=== PATIENT | female | born 1935 | race Caucasian/White ===

== ENCOUNTER 2019-04-06 07:11 | Emergency (ER) | payer OTHER, MEDICAID ==
[~2019-04-06] VITALS: Ht 165.1 cm; Wt 72.6 kg
[~2019-04-06 07:11] MED LIST: ASA81 PO; CARB1TAB10 PO; DICY10CA13 PO; GABA-531 PO; MEMA5TAB PO; MOM PO; MORP30TA59 PO; MULT-1117 PO; ONDA4TAB5 PO
[2019-04-06 07:18] VITALS: BP_SYST 148
[2019-04-06] MEDS ORDERED: LIDOCAINE 1% 10 MG/ML, 20 ML MDV INJ ONE (08:00)
[2019-04-06] MEDS ORDERED: LIDOCAINE 1%, 20 ML MDV 20 ML ONE (08:07)
[2019-04-06 11:10] VITALS: BP_SYST 148
== END 2019-04-06 11:10 | disposition home or self-care (01) ==
LOC: SED 07:11
DX: S51.812A Laceration without foreign body of left forearm, initial encounter (principal); S01.81XA Laceration without foreign body of other part of head, initial encounter; G20 Parkinson's disease; Z86.79 Personal history of other diseases of the circulatory system; Z79.82 Long term (current) use of aspirin; Z79.899 Other long term (current) drug therapy; W01.0XXA Fall on same level from slipping, tripping and stumbling without subsequent striking against object, initial encounter; Y93.89 Activity, other specified; Y92.89 Other specified places as the place of occurrence of the external cause; Y99.8 Other external cause status
CPT/HCPCS: 12004; 70450; 99284; J2001

== ENCOUNTER 2020-05-12 20:56 | Emergency (ER) | payer OTHER, MEDICAID ==
[~2020-05-12] VITALS: Ht 165.1 cm; Wt 72.6 kg
[2020-05-12 20:56] VITALS: BP_SYST 120
[2020-05-12] MEDS ORDERED: DOCU-144 PO (21:28)
[2020-05-12] MEDS ORDERED: LACT10SO6 PO (21:29)
[2020-05-12] MEDS ORDERED: ACET325T PO (21:31)
[2020-05-12] MEDS ORDERED: MEMA10TA PO ×2 (21:32→21:39)
[2020-05-12] MEDS ORDERED: CARB-61 PO (21:33)
[2020-05-12] MEDS ORDERED: ASCO500T20 PO (21:35)
[2020-05-12] MEDS ORDERED: CHOL100034 PO (21:38)
[2020-05-12] MEDS ORDERED: MULT-1100 PO (21:42)
[2020-05-12 21:48] LABS: BASOPHILS # (AUTO) 0.1 K/uL (0.0-0.2); BASOPHILS % (AUTO) 0.8 % (0.0-2.0); EOSINOPHILS # (AUTO) 0.1 K/uL (0.0-0.4); EOSINOPHILS % (AUTO) 1.1 % (0.0-4.0); HEMATOCRIT 39.3 % (36-48); HEMOGLOBIN 12.9 g/dL (12.0-16.0); LYMPHOCYTES # (AUTO) 3.1 K/uL (1.0-5.5); LYMPHOCYTES % (AUTO) 23.4 % (20.5-51.5); MEAN CORPUSCULAR HEMOGLOBIN 31 pg (27-31); MEAN CORPUSCULAR HGB CONC 33 % (32-36); MEAN CORPUSCULAR VOLUME 95 fL (79.0-98.0); MONOCYTES # (AUTO) 1.4 K/uL (0.0-1.0); MONOCYTES % (AUTO) 10.3 % (1.7-9.3); NEUTROPHILS # (AUTO) 8.5 K/uL (1.8-7.7); NEUTROPHILS % (AUTO) 64.4 % (40.0-70.0); PLATELET COUNT (AUTO) 433 K/uL (130-430); RED BLOOD CELL COUNT(AUTO) 4.13 MIL/uL (4.2-6.2); RED CELL DISTRIBUTION WIDTH 14.2 % (9.0-15.0); WHITE BLOOD COUNT (AUTO) 13.3 K/uL (4.8-10.8)
[2020-05-12 21:49] LABS: BILIRUBIN,URINE 1+ (NEGATIVE); COLOR,URINE YELLOW (YELLOW); GLUCOSE,URINE NEGATIVE (NEGATIVE); KETONES,URINE 1+ (NEGATIVE); LEUKOCYTE ESTERASE ,URINE NEGATIVE (NEGATIVE); NITRITE, URINE NEGATIVE (NEGATIVE); PH,URINE 5.5 (5.0-8.0); PROTEIN URINE NEGATIVE (NEGATIVE); UROBILINOGEN,URINE 0.2 (0.2-1.0)
[2020-05-12 22:05] LABS: ANION GAP 7 (5-15); CALCIUM 9.1 mg/dL (8.4-11.0); CHLORIDE 104 mmol/L (98-107); CREATININE 0.65 mg/dL (0.55-1.30); GLUCOSE 100 mg/dL (70-99); POTASSIUM 3.8 mmol/L (3.5-5.1); SODIUM SERUM 140 mmol/L (136-145); UREA NITROGEN, BLOOD 26 mg/dL (8-21)
[2020-05-12 22:14] LABS: ALANINE AMINOTRANSFERASE 25 U/L (12-78); ALBUMIN 3.7 g/dL (3.4-4.8); ASPARTATE AMINOTRANSFERASE 28 U/L (10-37); TOTAL BILIRUBIN 0.6 mg/dL (0.0-1.0)
[2020-05-12 22:23] LABS: ALCOHOL, BLOOD < 3 mg/dL (<10)
[2020-05-12 22:31] LABS: BARBITURATE, URINE NEGATIVE (NEG <=200); BENZODIAZEPINE, URINE NEGATIVE (NEG <=150); CANNABINOID, URINE NEGATIVE (NEG <=50); COCAINE, URINE NEGATIVE (NEG <=150); METHAMPHETAMINES SCREEN,URINE NEGATIVE (NEG <=500); OPIATE, URINE NEGATIVE (NEG <=100); PHENCYCLIDINE SCREEN,URINE NEGATIVE (NEG <=25); UR TRICYCLIC ANTIDEPRESSANTS NEGATIVE (NEG <=300); URINE AMPHETAMINE NEGATIVE (NEG <=500); URINE METHADONE NEGATIVE (NEG <=200); URINE OXYCODONE SCREEN NEGATIVE (NEG <=100); URINE PROPOXYPHENE SCREEN NEGATIVE (NEG <=300)
[2020-05-12] MEDS: NACL 0.9% 1,000 ML IV ONE (22:32)
[2020-05-12 22:36] LABS: BLOOD, URINE TRACE (NEGATIVE); CLARITY/URINE HAZY (CLEAR)
[2020-05-12 22:43] LABS: BACTERIA,URINE FEW /HPF (None Seen); MUCUS,URINE 2+ /LPF (None Seen); RBC,URINE 0-3 /HPF (0-3)
[2020-05-12] MEDS: cefTRIAXone 1 GM in D5W 50 ML IV ONE (22:59)
[2020-05-12] MEDS ORDERED: cefTRIAXone 1 GM VIAL ONE (23:13)
[2020-05-13 00:40] VITALS: BP_SYST 120
== END 2020-05-13 00:40 | disposition home or self-care (01) ==
LOC: SED 20:56
DX: R41.82 Altered mental status, unspecified (principal); N39.0 Urinary tract infection, site not specified; G20 Parkinson's disease; Z86.73 Personal history of transient ischemic attack (TIA), and cerebral infarction without residual deficits; Z79.899 Other long term (current) drug therapy; Z79.82 Long term (current) use of aspirin
CPT/HCPCS: 36415; 70450; 71045; 80053; 80307; 81000; 84484; 85025; 93005; 96365; 99285; G0482; J0696; J7030

== ENCOUNTER 2020-05-13 14:43 | Emergency (ER) | payer OTHER, MEDICAID ==
[~2020-05-13] VITALS: Ht 165.1 cm; Wt 68.0 kg
[~2020-05-13 14:43] MED LIST changes: +ACET325T PO; +ASCO500T20 PO; +CARB-61 PO; +CHOL100034 PO; +DOCU-144 PO; +LACT10SO6 PO; +MEMA10TA PO; +MULT-1100 PO
[2020-05-13 15:00] VITALS: BP_SYST 150
[2020-05-13 16:05] VITALS: BP_SYST 148
== END 2020-05-13 16:06 ==
LOC: SED 14:43
DX: R41.0 Disorientation, unspecified (principal); R45.1 Restlessness and agitation; G20 Parkinson's disease; G30.9 Alzheimer's disease, unspecified; F02.80 Dementia in other diseases classified elsewhere, unspecified severity, without behavioral disturbance, psychotic disturbance, mood disturbance, and anxiety; Z86.73 Personal history of transient ischemic attack (TIA), and cerebral infarction without residual deficits; Z79.899 Other long term (current) drug therapy; Z79.82 Long term (current) use of aspirin; Z20.828 Contact with and (suspected) exposure to other viral communicable diseases
CPT/HCPCS: 36415; 87081; 99285

== ENCOUNTER 2022-09-26 20:35 | Inpatient (IN) | payer OTHER, MEDICAID ==
[~2022-09-26] VITALS: Ht 167.6 cm; Wt 80.3 kg
[~2022-09-26 20:35] MED LIST changes: +CARB-317 PO; -CARB-61 PO; -CARB1TAB10 PO; -DICY10CA13 PO; -GABA-531 PO; -MEMA5TAB PO; -MOM PO; -MORP30TA59 PO; -MULT-1100 PO; -MULT-1117 PO; +MULT-1193 PO; -ONDA4TAB5 PO
[2022-09-26 20:38] VITALS: BP_SYST 120
[2022-09-26] MEDS ORDERED: DIPHENHYDRAMINE INJ 50 MG/ML VIAL IM ONE (20:45)
[2022-09-26] MEDS ORDERED: LORazepam 2 MG/ML VIAL IM ONE (20:45)
[2022-09-26] MEDS ORDERED: LORA-258 PO (21:04)
[2022-09-26] MEDS ORDERED: ASPI-524 PO (21:04)
[2022-09-26] MEDS ORDERED: DOCU100T10 PO (21:04)
[2022-09-26] MEDS ORDERED: CRAN450T9 PO (21:04)
[2022-09-26 21:05] LABS: BASOPHILS # (AUTO) 0.1 K/uL (0.0-0.2); BASOPHILS % (AUTO) 0.6 % (0.0-2.0); EOSINOPHILS # (AUTO) 0.1 K/uL (0.0-0.4); EOSINOPHILS % (AUTO) 0.4 % (0.0-4.0); HEMATOCRIT 37.2 % (36-48); HEMOGLOBIN 12.5 g/dL (12.0-16.0); LYMPHOCYTES # (AUTO) 1.6 K/uL (1.0-5.5); LYMPHOCYTES % (AUTO) 13.6 % (20.5-51.5); MEAN CORPUSCULAR HEMOGLOBIN 31 pg (27-31); MEAN CORPUSCULAR HGB CONC 34 % (32-36); MEAN CORPUSCULAR VOLUME 93 fL (79.0-98.0); MONOCYTES # (AUTO) 1.2 K/uL (0.0-1.0); MONOCYTES % (AUTO) 10.6 % (1.7-9.3); NEUTROPHILS # (AUTO) 8.6 K/uL (1.8-7.7); NEUTROPHILS % (AUTO) 74.8 % (40.0-70.0); PLATELET COUNT (AUTO) 313 K/uL (130-430); RED BLOOD CELL COUNT(AUTO) 4.01 MIL/uL (4.2-6.2); RED CELL DISTRIBUTION WIDTH 14.5 % (9.0-15.0); WHITE BLOOD COUNT (AUTO) 11.5 K/uL (4.8-10.8)
[2022-09-26] MEDS ORDERED: MEMA10TA PO (21:07)
[2022-09-26] MEDS ORDERED: ACET325C6 PO (21:07)
[2022-09-26] MEDS ORDERED: CARB-61 PO (21:07)
[2022-09-26] MEDS ORDERED: MELA3TAB55 PO (21:07)
[2022-09-26] MEDS ORDERED: CHOL500013 PO (21:07)
[2022-09-26] MEDS ORDERED: MULT-598 PO (21:07)
[2022-09-26] MEDS ORDERED: DONE5TAB3 PO (21:07)
[2022-09-26 21:15] LABS: ANION GAP 7 (5-15); CALCIUM 8.9 mg/dL (8.4-11.0); CHLORIDE 101 mmol/L (98-107); CREATININE 0.81 mg/dL (0.55-1.30); GLUCOSE 103 mg/dL (70-99); UREA NITROGEN, BLOOD 24 mg/dL (8-21)
[2022-09-26 21:22] LABS: ALANINE AMINOTRANSFERASE 11 U/L (12-78); ALBUMIN 3.5 g/dL (3.4-4.8); ASPARTATE AMINOTRANSFERASE 24 U/L (10-37); TOTAL BILIRUBIN 0.7 mg/dL (0.0-1.0)
[2022-09-26 21:41] LABS: BILIRUBIN,URINE NEGATIVE (NEGATIVE); BLOOD, URINE NEGATIVE (NEGATIVE); CLARITY/URINE SL CLOUDY (CLEAR); COLOR,URINE YELLOW (YELLOW); GLUCOSE,URINE NEGATIVE (NEGATIVE); KETONES,URINE 1+ (NEGATIVE); LEUKOCYTE ESTERASE ,URINE TRACE (NEGATIVE); NITRITE, URINE NEGATIVE (NEGATIVE); PROTEIN URINE NEGATIVE (NEGATIVE); UROBILINOGEN,URINE 0.2 (0.2-1.0)
[2022-09-26 21:58] LABS: BACTERIA,URINE FEW /HPF (None Seen); RBC,URINE 0-3 /HPF (0-3); WBC,URINE 50-80 /HPF (0-3); YEAST,URINE Rare /HPF (None Seen)
[2022-09-26 21:59] LABS: MUCUS,URINE 3+ /LPF (None Seen); OTHER CASTS, URINE WBC CASTS 1+ /LPF (None Seen)
[2022-09-26] MEDS ORDERED: cefTRIAXone 1 GM IVPB PREMIX 50 ML IV ONE (22:15)
[2022-09-26] MEDS: KCL 20 mEq in D5NS 1000 mL 1,000 ML IV SCH (23:57)
[2022-09-27] MEDS ORDERED: KCL 20 mEq in D5NS 1000 mL 1,000 ML IV ONE (00:04)
[2022-09-27] MEDS ORDERED: DIPHENHYDRAMINE INJ 50 MG/ML VIAL IVP PRN (04:15)
[2022-09-27] MEDS: LORazepam 2 MG/ML VIAL IVP PRN (04:29)
[2022-09-27 06:41] VITALS: BP_SYST 141
[2022-09-27 08:00] VITALS: BP_SYST 128
[2022-09-27] MEDS: CEFEPIME 1 GM in D5W 50 ML IV SCH ×2 (08:35→23:09)
[2022-09-27] MEDS ORDERED: CEFEPIME 1 GM in D5W 50 ML IV SCH (09:00)
[2022-09-27 11:34] VITALS: BP_SYST 149
[2022-09-27] MEDS: KCL 20 mEq in D5NS 1000 mL 1,000 ML IV SCH (12:00)
[2022-09-27] MEDS ORDERED: ACETAMINOPHEN PO SCH (14:00)
[2022-09-27] MEDS: CARBIDOPA/LEVODOPA 25/100 MG TABLET PO SCH ×2 (15:00→23:28)
[2022-09-27] MEDS ORDERED: ACETAMINOPHEN 325 MG TABLET PO PRN (15:15)
[2022-09-27 16:07] VITALS: BP_SYST 123
[2022-09-27] MEDS ORDERED: NON-FORMULARY MEDICATION (Cranberry Fruit (Cranberry) 1 TAB) PO SCH (21:00)
[2022-09-27] MEDS: MELATONIN 3 MG TABLET PO SCH (21:00)
[2022-09-27] MEDS: MEMANTINE HCL 5 MG TABLET PO SCH (21:00)
[2022-09-27] MEDS: DONEPEZIL HCL 5 MG TABLET (ARICEPT) PO SCH (21:00)
[2022-09-27] MEDS: MEGESTROL ACETATE 400 MG/10 ML UDC PO SCH (23:26)
[2022-09-27] MEDS: ENOXAPARIN SODIUM 40 MG/0.4 ML SYRINGE SUBCUT SCH (23:44)
[2022-09-28] VITALS (7 sets, daily range): BP systolic 109–149
[2022-09-28] MEDS: KCL 20 mEq in D5NS 1000 mL 1,000 ML IV SCH ×2 (00:19→14:38)
[2022-09-28] MEDS: LORazepam 2 MG/ML VIAL IVP PRN ×3 (08:48→21:26)
[2022-09-28] MEDS: MEGESTROL ACETATE 400 MG/10 ML UDC PO SCH ×2 (08:49→21:26)
[2022-09-28] MEDS: CEFEPIME 1 GM in D5W 50 ML IV SCH ×2 (08:49→21:21)
[2022-09-28] MEDS: ASPIRIN 81 MG TAB.CHEW PO SCH (08:49)
[2022-09-28] MEDS: MULTIVITS,CA,MINERALS/IRON/FA 1 TABLET PO SCH (08:50)
[2022-09-28] MEDS: MEMANTINE HCL 5 MG TABLET PO SCH ×2 (08:50→21:22)
[2022-09-28] MEDS: DOCUSATE SODIUM 100 MG CAPSULE PO SCH (08:50)
[2022-09-28] MEDS: CARBIDOPA/LEVODOPA 25/100 MG TABLET PO SCH ×3 (08:51→21:22)
[2022-09-28] MEDS: CHOLECALCIFEROL (VITAMIN D3) 2,000 UNIT TABLET PO SCH (08:51)
[2022-09-28] MEDS ORDERED: DOCUSATE SODIUM PO SCH (09:00)
[2022-09-28] MEDS: DONEPEZIL HCL 5 MG TABLET (ARICEPT) PO SCH (21:21)
[2022-09-28] MEDS: ENOXAPARIN SODIUM 40 MG/0.4 ML SYRINGE SUBCUT SCH (21:27)
[2022-09-28] MEDS: MELATONIN 3 MG TABLET PO SCH (22:19)
[2022-09-29 00:45] VITALS: BP_SYST 118
[2022-09-29] MEDS: KCL 20 mEq in D5NS 1000 mL 1,000 ML IV SCH ×2 (02:36→16:20)
[2022-09-29] MEDS: LORazepam 2 MG/ML VIAL IVP PRN ×2 (02:37→10:30)
[2022-09-29 06:10] LABS: BASOPHILS % (AUTO) 0.7 % (0.0-2.0); EOSINOPHILS # (AUTO) 0.2 K/uL (0.0-0.4); EOSINOPHILS % (AUTO) 2.8 % (0.0-4.0); HEMATOCRIT 40.2 % (36-48); HEMOGLOBIN 13.5 g/dL (12.0-16.0); LYMPHOCYTES # (AUTO) 1.9 K/uL (1.0-5.5); LYMPHOCYTES % (AUTO) 25.6 % (20.5-51.5); MEAN CORPUSCULAR HEMOGLOBIN 31 pg (27-31); MEAN CORPUSCULAR HGB CONC 34 % (32-36); MEAN CORPUSCULAR VOLUME 93 fL (79.0-98.0); MONOCYTES # (AUTO) 0.6 K/uL (0.0-1.0); MONOCYTES % (AUTO) 8.2 % (1.7-9.3); NEUTROPHILS # (AUTO) 4.6 K/uL (1.8-7.7); NEUTROPHILS % (AUTO) 62.7 % (40.0-70.0); PLATELET COUNT (AUTO) 329 K/uL (130-430); RED BLOOD CELL COUNT(AUTO) 4.33 MIL/uL (4.2-6.2); RED CELL DISTRIBUTION WIDTH 14.6 % (9.0-15.0); WHITE BLOOD COUNT (AUTO) 7.3 K/uL (4.8-10.8)
[2022-09-29 06:25] LABS: ANION GAP 8 (5-15); CALCIUM 8.8 mg/dL (8.4-11.0); CHLORIDE 106 mmol/L (98-107); CREATININE 0.66 mg/dL (0.55-1.30); GLUCOSE 94 mg/dL (70-99); UREA NITROGEN, BLOOD 12 mg/dL (8-21)
[2022-09-29 08:00] VITALS: BP_SYST 161
[2022-09-29] MEDS: CHOLECALCIFEROL (VITAMIN D3) 2,000 UNIT TABLET PO SCH (09:29)
[2022-09-29] MEDS: MEMANTINE HCL 5 MG TABLET PO SCH ×2 (09:29→21:41)
[2022-09-29] MEDS: DOCUSATE SODIUM 100 MG CAPSULE PO SCH (09:29)
[2022-09-29] MEDS: MEGESTROL ACETATE 400 MG/10 ML UDC PO SCH ×2 (09:29→21:40)
[2022-09-29] MEDS: MULTIVITS,CA,MINERALS/IRON/FA 1 TABLET PO SCH (09:29)
[2022-09-29] MEDS: CARBIDOPA/LEVODOPA 25/100 MG TABLET PO SCH ×3 (09:29→21:40)
[2022-09-29] MEDS: CEFEPIME 1 GM in D5W 50 ML IV SCH ×2 (09:29→21:42)
[2022-09-29] MEDS: ASPIRIN 81 MG TAB.CHEW PO SCH (09:29)
[2022-09-29 11:05] VITALS: BP_SYST 140
[2022-09-29 20:00] VITALS: BP_SYST 138
[2022-09-29] MEDS: risperiDONE 0.25 MG TABLET (RisperDAL) PO SCH (21:40)
[2022-09-29] MEDS: DONEPEZIL HCL 5 MG TABLET (ARICEPT) PO SCH (21:40)
[2022-09-29] MEDS: MELATONIN 3 MG TABLET PO SCH (21:41)
[2022-09-29] MEDS: ENOXAPARIN SODIUM 40 MG/0.4 ML SYRINGE SUBCUT SCH (21:55)
[2022-09-30 00:49] VITALS: BP_SYST 101
[2022-09-30 08:26] VITALS: BP_SYST 163
[2022-09-30] MEDS: DOCUSATE SODIUM 100 MG CAPSULE PO SCH (09:39)
[2022-09-30] MEDS: MEGESTROL ACETATE 400 MG/10 ML UDC PO SCH ×2 (09:39→21:38)
[2022-09-30] MEDS: MULTIVITS,CA,MINERALS/IRON/FA 1 TABLET PO SCH (09:39)
[2022-09-30] MEDS: MEMANTINE HCL 5 MG TABLET PO SCH ×2 (09:40→21:38)
[2022-09-30] MEDS: CARBIDOPA/LEVODOPA 25/100 MG TABLET PO SCH ×3 (09:40→21:38)
[2022-09-30] MEDS: risperiDONE 0.25 MG TABLET (RisperDAL) PO SCH ×2 (09:40→21:39)
[2022-09-30] MEDS: ASPIRIN 81 MG TAB.CHEW PO SCH (09:40)
[2022-09-30] MEDS: CHOLECALCIFEROL (VITAMIN D3) 2,000 UNIT TABLET PO SCH (09:45)
[2022-09-30] MEDS: CEFEPIME 1 GM in D5W 50 ML IV SCH ×2 (09:47→21:50)
[2022-09-30] MEDS: KCL 20 mEq in D5NS 1000 mL 1,000 ML IV SCH ×2 (19:00→21:42)
[2022-09-30 20:15] VITALS: BP_SYST 149
[2022-09-30] MEDS: DONEPEZIL HCL 5 MG TABLET (ARICEPT) PO SCH (21:38)
[2022-09-30] MEDS: MELATONIN 3 MG TABLET PO SCH (21:39)
[2022-09-30] MEDS: ENOXAPARIN SODIUM 40 MG/0.4 ML SYRINGE SUBCUT SCH (21:41)
[2022-10-01 02:00] VITALS: BP_SYST 145
[2022-10-01 06:23] LABS: BASOPHILS # (AUTO) 0.1 K/uL (0.0-0.2); EOSINOPHILS # (AUTO) 0.3 K/uL (0.0-0.4); EOSINOPHILS % (AUTO) 3.6 % (0.0-4.0); HEMATOCRIT 41.9 % (36-48); HEMOGLOBIN 14.1 g/dL (12.0-16.0); LYMPHOCYTES # (AUTO) 2.7 K/uL (1.0-5.5); LYMPHOCYTES % (AUTO) 32.7 % (20.5-51.5); MEAN CORPUSCULAR HEMOGLOBIN 31 pg (27-31); MEAN CORPUSCULAR HGB CONC 34 % (32-36); MEAN CORPUSCULAR VOLUME 92 fL (79.0-98.0); MONOCYTES # (AUTO) 1.1 K/uL (0.0-1.0); MONOCYTES % (AUTO) 13.6 % (1.7-9.3); NEUTROPHILS % (AUTO) 49.1 % (40.0-70.0); PLATELET COUNT (AUTO) 344 K/uL (130-430); RED BLOOD CELL COUNT(AUTO) 4.55 MIL/uL (4.2-6.2); RED CELL DISTRIBUTION WIDTH 14.8 % (9.0-15.0); WHITE BLOOD COUNT (AUTO) 8.2 K/uL (4.8-10.8)
[2022-10-01 06:50] LABS: ANION GAP 9 (5-15); CALCIUM 9.2 mg/dL (8.4-11.0); CHLORIDE 106 mmol/L (98-107); GLUCOSE 99 mg/dL (70-99); UREA NITROGEN, BLOOD 9 mg/dL (8-21)
[2022-10-01 08:00] VITALS: BP_SYST 139
[2022-10-01] MEDS: DOCUSATE SODIUM 100 MG CAPSULE PO SCH (08:41)
[2022-10-01] MEDS: KCL 20 mEq in D5NS 1000 mL 1,000 ML IV SCH (08:41)
[2022-10-01] MEDS: ASPIRIN 81 MG TAB.CHEW PO SCH (08:53)
[2022-10-01] MEDS: CEFEPIME 1 GM in D5W 50 ML IV SCH (08:53)
[2022-10-01] MEDS: MEMANTINE HCL 5 MG TABLET PO SCH (08:54)
[2022-10-01] MEDS: MEGESTROL ACETATE 400 MG/10 ML UDC PO SCH (08:54)
[2022-10-01] MEDS: risperiDONE 0.25 MG TABLET (RisperDAL) PO SCH (08:55)
[2022-10-01] MEDS: CARBIDOPA/LEVODOPA 25/100 MG TABLET PO SCH ×2 (08:55→14:42)
[2022-10-01] MEDS: MULTIVITS,CA,MINERALS/IRON/FA 1 TABLET PO SCH (08:55)
[2022-10-01] MEDS: CHOLECALCIFEROL (VITAMIN D3) 2,000 UNIT TABLET PO SCH (08:56)
[2022-10-01 11:00] VITALS: BP_SYST 106
[2022-10-01 15:20] VITALS: BP_SYST 148
[2022-10-01 16:00] VITALS: BP_SYST 148
[2022-10-01 16:54] VITALS: BP_SYST 136
== END 2022-10-01 18:53 | DRG 689 ==
LOC: SED 20:35 → SMU 22:23
PROVIDERS: ADMIT Family Medicine; ATTEND Family Medicine
DX: N39.0 Urinary tract infection, site not specified (principal); G93.41 Metabolic encephalopathy; Z20.822 Contact with and (suspected) exposure to COVID-19; G20 Parkinson's disease; I25.10 Atherosclerotic heart disease of native coronary artery without angina pectoris; G30.9 Alzheimer's disease, unspecified; F02.80 Dementia in other diseases classified elsewhere, unspecified severity, without behavioral disturbance, psychotic disturbance, mood disturbance, and anxiety; M17.0 Bilateral primary osteoarthritis of knee; Z79.82 Long term (current) use of aspirin; Z79.899 Other long term (current) drug therapy
CPT/HCPCS: 36415; 70450-TC; 71045; 76376; 80048; 80053; 81000; 82962; 83735; 84484; 85025; 87040; 87081; 87086; 93005; 96365; 96372; 99285; J0692; J0696; J1200; J1650; J2060; J7060